=== PATIENT | female | born 1935 | race Two or more races ===

== ENCOUNTER 2016-10-02 10:40 | Outpatient (CLI) | payer MEDICARE, BC | END 2016-10-02 10:41 | disposition home or self-care (01) | DX: Z12.31 Encounter for screening mammogram for malignant neoplasm of breast (principal) ==

== ENCOUNTER 2017-10-11 12:24 | Outpatient (CLI) | payer MEDICARE, BC, OTHER ==
--- NOTE | 2017-10-12 19:56 | Mammography Report ---
DATE OF SERVICE: 10/11/2017 DIGITAL SCREENING MAMMOGRAM: 10/11/2017 CLINICAL INDICATION: An 82-year-old with history of benign biopsies for screening. COMPARISON: 09/2016, 09/2015, 09/2014, 07/2013, 07/2012, 07/2011, 07/2010. TECHNIQUE: Routine CC and MLO projections as well as bilateral laterally exaggerated craniocaudal views were obtained of the breasts. The breasts demonstrate scattered fibroglandular densities bilaterally. A few punctate, typically benign calcifications are present. Post-biopsy changes are stable. No suspicious masses, clustered microcalcifications, or regions of architectural distortion are identified. IMPRESSION: Benign findings. RECOMMENDATIONS: Routine annual screening unless otherwise clinically indicated. BIRADS category 2 benign findings. STANDARD QUALIFYING STATEMENTS 1. This examination was reviewed with the aid of Computed-Aided Detection (CAD). 2. A negative or benign imaging report should not delay biopsy if clinically suspicious findings are present. Consider surgical consultation if warranted. More than 5% of cancers are not identified by imaging. 3. Dense breasts may obscure an underlying neoplasm. TD: 10/12/2017 20:55
== END 2017-10-11 12:25 | disposition home or self-care (01) ==
LOC: DI 12:24
PROVIDERS: ATTEND Obstetrics & Gynecology
DX: Z12.31 Encounter for screening mammogram for malignant neoplasm of breast (principal)
CPT/HCPCS: 77067

== ENCOUNTER 2018-10-14 12:21 | Outpatient (CLI) | payer MEDICARE, BC, OTHER ==
--- NOTE | 2018-10-17 09:31 | Mammography Report ---
Reason: [facility] SCREEN MAMMOGRAM FOR MALIGNANT NEOPLASM OF B Procedure Date: 10/14/2018 Accession Number: [id number] / [id number] Procedure: [facility] - Screening Mammo w/[facility] CPT Code: FULL RESULT: EXAM: Screening Mammo w/[facility] DATE: 10/14/2018 1:25 PM CLINICAL HISTORY: Screening encounter. Personal history of stage II endometrial cancer and early menses. History of right breast benign tumor removal in 1967 and right breast cyst removal in 1968. TECHNIQUE: Bilateral CC and MLO views were obtained. COMPARISON: 10/11/2017 through 10/04/2014. FINDINGS: The breasts demonstrate scattered fibroglandular densities bilaterally. There are stable postsurgical changes in the right breast. A coarse typically benign calcification in the left breast is stable. No suspicious masses, clustered microcalcifications, or regions of architectural distortion are identified. IMPRESSION: Benign findings RECOMMENDATION: Routine annual screening unless otherwise clinically indicated. BIRADS CATEGORY 2: Benign findings STANDARD QUALIFYING STATEMENTS: 1. This examination was not reviewed with the aid of Computer-Aided Detection (CAD). 2. A negative or benign imaging report should not preclude biopsy if clinically suspicious findings are present. 3. Dense breasts may obscure an underlying neoplasm. 4. This examination was reviewed with the aid of 3D breast imaging (tomosynthesis).
== END 2018-10-14 12:22 | disposition home or self-care (01) ==
LOC: DI 12:21
PROVIDERS: ATTEND Obstetrics & Gynecology
DX: Z12.31 Encounter for screening mammogram for malignant neoplasm of breast (principal)
CPT/HCPCS: 77063; 77067

== ENCOUNTER 2019-04-04 08:00 | Outpatient (CLI) | payer MEDICARE, BC, OTHER ==
[2019-04-04 18:51] LABS: BASOPHILS # (AUTO) 0.1 10^3/uL (0.0-0.1); BASOPHILS % (AUTO) 1.2 %; EOSINOPHILS # (AUTO) 0.1 10^3/uL (0.0-0.7); HGB - HEMOGLOBIN 13.9 g/dL (12.0-16.0); LYMPHOCYTES # (AUTO) 1.8 10^3/uL (1.5-3.5); MEAN CORPUSCULAR HGB CONC 33.2 g/dL (32.0-36.0); MEAN CORPUSCULAR VOLUME 96.5 fL (81.0-99.0); MEAN PLATELET VOLUME 13.4 fL (7.9-10.8); MONOCYTES # (AUTO) 0.5 10^3/uL (0.0-1.0); MONOCYTES % (AUTO) 8.7 %; NEUTROPHILS # (AUTO) 2.8 10^3/uL (1.5-6.6); NEUTROPHILS % (AUTO) 53.9 %; PLT - PLATELET COUNT 236 10^3/uL (130-450); RED BLOOD COUNT 4.34 10^6/uL (4.20-5.40); RED CELL DISTRIBUTION WIDTH 12.7 % (12.0-15.0); WHITE BLOOD COUNT 5.2 x10^3/uL (4.8-10.8)
[2019-04-04 19:04] LABS: ALBUMIN 4.5 g/dL (3.2-5.5); ALKALINE PHOSPHATASE 68 IU/L (42-121); ALT ALANINE AMINOTRANSFERASE 23 IU/L (10-60); AST ASPARTATE AMINOTRANSFERASE 23 IU/L (10-42); BILIRUBIN,TOTAL 1.3 mg/dL (0.2-1.0); BUN - BLOOD UREA NITROGEN 20 mg/dL (6-20); CALCIUM 9.9 mg/dL (8.5-10.3); CARBON DIOXIDE - CO2 27 mmol/L (21-32); CHLORIDE 101 mmol/L (101-111); CHOLESTEROL 186 mg/dL; CREATININE 0.7 mg/dL (0.4-1.0); GFR - MDRD 80 (>89); GLUCOSE 113 mg/dL (70-100); HDL CHOLESTEROL 93 mg/dL; LDL CHOLESTEROL,CALCULATED 82 mg/dL; LDL/HDL RATIO 0.9 (<4.4); SODIUM 140 mmol/L (135-145); TOTAL PROTEIN 6.7 g/dL (6.7-8.2); VLDL CHOLESTEROL 11 mg/dL
[2019-04-04 21:21] LABS: PLATELET ESTIMATE, MANUAL NORMAL (130-450,000) (NORMAL); PLATELET MORPHOLOGY 1+ LARGE PLATELETS (NORMAL); RBC MORPHOLOGY (MULTIPLE) NORMAL APPEARANCE (NORMAL)
== END 2019-04-04 23:59 | disposition home or self-care (01) ==
LOC: LAB.WCP 08:00
PROVIDERS: ATTEND Family Medicine
DX: E78.5 Hyperlipidemia, unspecified (principal)
CPT/HCPCS: 36415; 80053; 80061; 83721; 84443; 85025

== ENCOUNTER 2019-07-18 14:49 | Outpatient (CLI) | payer MEDICARE, BC, OTHER ==
[2019-07-18 19:41] LABS: THYROID STIMULATING HORMONE 2.06 uIU/mL (0.34-5.60)
[2019-07-18 19:43] LABS: FREE T4 (FREE THYROXINE) 0.78 ng/dL (0.58-1.64)
== END 2019-07-18 23:59 | disposition home or self-care (01) ==
LOC: LAB.N 14:49
PROVIDERS: ATTEND Family Medicine
DX: E04.1 Nontoxic single thyroid nodule (principal)
CPT/HCPCS: 36415; 84439; 84443; 84481; 86800

== ENCOUNTER 2019-08-03 09:00 | Outpatient (CLI) | payer MEDICARE, BC, OTHER ==
[2019-08-04 11:39] LABS: BILIRUBIN,URINE NEGATIVE (NEGATIVE); CLARITY,URINE CLEAR (CLEAR); GLUCOSE, URINE (UA) NEGATIVE (NEGATIVE); KETONES,URINE (UA) TRACE mg/dL (NEGATIVE); LEUKOCYTE ESTERASE, URINE NEGATIVE (NEGATIVE); NITRITE,URINE NEGATIVE (NEGATIVE); OCCULT BLOOD,URINE TRACE-LYSE (NEGATIVE); PH,URINE 5.5 PH (5.0-7.5); PROTEIN,URINE NEGATIVE (NEGATIVE); UROBILINOGEN,URINE 0.2 (NORMAL) E.U./dL (NORMAL)
[2019-08-04 12:02] LABS: RBC,URINE 0-5 /HPF (0-5); SQUAMOUS EPITHELIAL CELL,UR FEW Squamous (<= Few)
[2019-08-04 12:03] LABS: BACTERIA,URINE Rare /HPF (None Seen)
== END 2019-08-03 23:59 | disposition home or self-care (01) ==
LOC: LAB.R 09:00
PROVIDERS: ATTEND Obstetrics & Gynecology
DX: Z80.52 Family history of malignant neoplasm of bladder (principal)
CPT/HCPCS: 81001

== ENCOUNTER 2019-08-23 07:00 | Outpatient (CLI) | payer MEDICARE, BC, OTHER ==
[2019-08-23 15:55] LABS: BILIRUBIN,URINE NEGATIVE (NEGATIVE); GLUCOSE, URINE (UA) NEGATIVE (NEGATIVE); KETONES,URINE (UA) NEGATIVE (NEGATIVE); LEUKOCYTE ESTERASE, URINE NEGATIVE (NEGATIVE); NITRITE,URINE NEGATIVE (NEGATIVE); OCCULT BLOOD,URINE NEGATIVE (NEGATIVE); PROTEIN,URINE 30 mg/dL (NEGATIVE); UROBILINOGEN,URINE 0.2 (NORMAL) E.U./dL (NORMAL)
[2019-08-23 16:01] LABS: CLARITY,URINE CLEAR (CLEAR)
[2019-08-23 16:13] LABS: BACTERIA,URINE None Seen /HPF (None Seen); RBC,URINE None Seen /HPF (0-5); SQUAMOUS EPITHELIAL CELL,UR RARE Squamous (<= Few)
== END 2019-08-23 23:59 | disposition home or self-care (01) ==
LOC: LAB.R 07:00
PROVIDERS: ATTEND Obstetrics & Gynecology
DX: R31.21 Asymptomatic microscopic hematuria (principal); R30.0 Dysuria
CPT/HCPCS: 81001

== ENCOUNTER 2019-08-23 12:46 | Outpatient (CLI) | payer MEDICARE, BC, OTHER ==
--- NOTE | 2019-08-23 16:55 | Ultrasound Report ---
Reason: THYROID NODULE Procedure Date: 08/23/2019 Accession Number: [id number] / [id number] Procedure: US - Head or Neck Soft Tissue CPT Code: Final Report FULL RESULT: EXAM: THYROID ULTRASOUND EXAM DATE: 08/23/2019 03:01 PM. CLINICAL HISTORY: THYROID NODULE. COMPARISON: 10/18/2015. TECHNIQUE: Real time sonographic imaging of the thyroid was performed by the tab card press operator. Multiple sales representative health insurance static images were saved for review. FINDINGS: THYROID GLAND: Right Lobe: 3.9 x 1.2 x 1.3 cm, volume 3.1 cc. Right Lobe Nodule: Mixed cystic/solid nodule in central position measuring 1.4 x 0.7 x 0.83 cm. The margins are smooth and remains wider than tall. No associated calcifications. Left Lobe: 4.5 x 0.84 x 1.0 cm, volume 1.9 cc. Left Lobe Nodule: Oval hypoechoic solid nodule measuring 0.9 x 0.5 x 0.7 cm. The margins are and is wider than tall. No associated calcifications. Isthmus: 0.16 cm AP. Isthmic Nodules: None. LYMPH NODES: No adenopathy demonstrated in the central or lateral compartment. IMPRESSION: 1. Right lobe nodule - oval, circumscribed, mixed solid /cystic measuring 1.4 cm in maximal dimension. Stable since 2015 2. Left lobe nodule - oval, circumscribed, measuring 0.9 cm in maximal dimension. Recommend follow-up surveillance ultrasound in 12 months to confirm stability. Management recommendations are based on 2015 [place] [employer] Management Guidelines for Adult Patients with Thyroid Nodules and Differentiated Thyroid Cancer. RADIA
== END 2019-08-23 12:47 | disposition home or self-care (01) ==
LOC: DI 12:46
PROVIDERS: ATTEND Family Medicine
DX: E04.2 Nontoxic multinodular goiter (principal); R31.21 Asymptomatic microscopic hematuria; R30.0 Dysuria
CPT/HCPCS: 76536; 81001

== ENCOUNTER 2019-10-03 12:53 | Outpatient (CLI) | payer MEDICARE, BC, OTHER ==
--- NOTE | 2019-10-04 12:04 | Mammography Report ---
Reason: ROUTINE MAMMO Procedure Date: 10/03/2019 Accession Number: [id number] / [id number] Procedure: [facility] - Screening Mammo w/Gilmer CPT Code: Final Report FULL RESULT: EXAM: Screening Mammo w/[facility] DATE: 10/03/2019 1:41 PM CLINICAL HISTORY: The patient is an 84 year-old asymptomatic female. Family history breast cancer. Prior benign right breast biopsy. TECHNIQUE: (B) - Bilateral CC and MLO views were obtained. COMPARISON: 10/14/2018, 10/11/2017, 10/02/2016, 10/08/2015, 10/04/2014, 08/21/2013 08/12/2012 PARENCHYMAL PATTERN: (A) - The breasts demonstrate scattered fibroglandular densities bilaterally. FINDINGS: The pattern of asymmetry is stable given positional variation. Post biopsy changes again noted on the right side. There are no suspicious masses, calcifications, or areas of distortion. IMPRESSION: Benign findings. BI-RADS category 2. RECOMMENDATION: (ANNUAL) - Recommend routine annual screening mammography. BI-RADS CATEGORY: (2) - Benign Findings. STANDARD QUALIFYING STATEMENTS: A negative or benign imaging report should not preclude biopsy if clinically suspicious findings are present. Dense breasts may obscure an underlying neoplasm. This examination was reviewed with the aid of 3D breast imaging (tomosynthesis).
== END 2019-10-03 12:54 | disposition home or self-care (01) ==
LOC: DI 12:53
PROVIDERS: ATTEND Obstetrics & Gynecology
DX: Z12.31 Encounter for screening mammogram for malignant neoplasm of breast (principal); Z80.3 Family history of malignant neoplasm of breast
CPT/HCPCS: 77063; 77067

== ENCOUNTER 2020-10-07 10:04 | Outpatient (CLI) | payer MEDICARE, BC, OTHER ==
[2020-10-07 12:00] LABS: BASOPHILS % (AUTO) 0.7 %; EOSINOPHILS # (AUTO) 0.1 10^3/uL (0.0-0.7); EOSINOPHILS % (AUTO) 0.8 %; HGB - HEMOGLOBIN 13.7 g/dL (12.0-16.0); LYMPHOCYTES # (AUTO) 1.8 10^3/uL (1.5-3.5); MEAN CORPUSCULAR HEMOGLOBIN 30.9 pg (27.0-31.0); MEAN CORPUSCULAR HGB CONC 32.8 g/dL (32.0-36.0); MEAN CORPUSCULAR VOLUME 94.4 fL (81.0-99.0); MEAN PLATELET VOLUME 11.9 fL (7.9-10.8); MONOCYTES # (AUTO) 0.4 10^3/uL (0.0-1.0); MONOCYTES % (AUTO) 6.9 %; NEUTROPHILS # (AUTO) 3.6 10^3/uL (1.5-6.6); NEUTROPHILS % (AUTO) 60.4 %; PLT - PLATELET COUNT 191 10^3/uL (130-450); RED BLOOD COUNT 4.43 10^6/uL (4.20-5.40); RED CELL DISTRIBUTION WIDTH 12.5 % (12.0-15.0); WHITE BLOOD COUNT 5.9 x10^3/uL (4.8-10.8)
[2020-10-07 13:14] LABS: ALBUMIN 4.2 g/dL (3.2-5.5); ALKALINE PHOSPHATASE 71 IU/L (42-121); ALT ALANINE AMINOTRANSFERASE 19 IU/L (10-60); AST ASPARTATE AMINOTRANSFERASE 19 IU/L (10-42); BILIRUBIN,TOTAL 0.9 mg/dL (0.2-1.0); BUN - BLOOD UREA NITROGEN 17 mg/dL (6-20); CALCIUM 9.5 mg/dL (8.5-10.3); CARBON DIOXIDE - CO2 29 mmol/L (21-32); CHLORIDE 108 mmol/L (101-111); CHOL/HDL RATIO 2.1 (<4.4); CHOLESTEROL 166 mg/dL; CREATININE 0.6 mg/dL (0.4-1.0); GLUCOSE 107 mg/dL (70-100); HDL CHOLESTEROL 80 mg/dL; LDL CHOLESTEROL,CALCULATED 76 mg/dL; SODIUM 143 mmol/L (135-145); TOTAL PROTEIN 6.3 g/dL (6.7-8.2); VLDL CHOLESTEROL 10 mg/dL
== END 2020-10-07 23:59 | disposition home or self-care (01) ==
LOC: LAB.WCP 10:04
PROVIDERS: ATTEND Nurse Practitioner Family
DX: E78.5 Hyperlipidemia, unspecified (principal); E04.1 Nontoxic single thyroid nodule; K21.9 Gastro-esophageal reflux disease without esophagitis
CPT/HCPCS: 36415; 80053; 80061; 83721; 84443; 85025

== ENCOUNTER 2021-01-15 09:40 | Emergency (ER) | payer MEDICARE, BC ==
--- OUTSIDE RECORDS SUMMARY | 2021-01-15 10:17 | EXTERNAL MEDICAL SUMMARY RPT | Continuity of Care Document ---
:1935 Demographics Phone Unavailable Preferred Language Unknown Marital Status Unknown Mu-Ism Affiliation Unknown Race Unknown Ethnic Group Unknown Author Organization [facility] Address [address] [phone] Phone Social History date description facility [id number]
[2021-01-15] MEDS ORDERED: AMOX/CLAV 875 MG/125 MG TABLET PO STA (10:37)
--- NOTE | 2021-01-15 10:40 | ED Physician Documentation ---
PD HPI SKIN - Stated complaint Stated Complaint: LT HAND PAIN - Chief complaint Chief Complaint: Wound - History obtained from History obtained from: Patient - Additional information Additional information: Patient comes emergency department with chief complaint of cat scratch to hand. Patient states she was feeding a stray cat this morning when it suddenly scratched her. Patient denies any bites. She states the wound bled quite a bit and finally stopped but now she has a big bruise over her left first metacarpal joint where she was scratched. Patient is concerned because a number of years ago, she had a cat bite and the immediately gave her antibiotics via IV, even though she did not have signs of infection. Patient has come right him over this concern. She was not injured in any other way. She states the wound does not hurt and that she has been able to fully move her thumb. No other complaints at this time Review of Systems Ten Systems: 10 systems reviewed and negative Constitutional: reports: Reviewed and negative Eyes: reports: Reviewed and negative Ears: reports: Reviewed and negative Nose: reports: Reviewed and negative Throat: reports: Reviewed and negative Cardiac: reports: Reviewed and negative Respiratory: reports: Reviewed and negative GI: reports: Reviewed and negative : reports: Reviewed and negative Skin: reports: Other (Puncture wound) Musculoskeletal: reports: Reviewed and negative Neurologic: reports: Reviewed and negative Psychiatric: reports: Reviewed and negative Endocrine: reports: Reviewed and negative Immunocompromised: reports: Reviewed and negative PD PAST MEDICAL HISTORY - Past Medical History Past Medical History: Yes Cardiovascular: None Respiratory: None Endocrine/Autoimmune: None GI: Other : Other HEENT: Chronic sinusitis Psych: None Musculoskeletal: Osteoarthritis Derm: None - Past Surgical History Past Surgical History: Yes General: Cholecystectomy, Appendectomy, Colonoscopy, Other Ortho: 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, Oophrectomy HEENT: Cataracts - Present Medications Home Medications: Ambulatory Orders Medication Instructions Recorded Confirmed Hydrochlorothiazide 25 mg PO DAILY 03/11/13 05/13/15 Multivitamin,Ther and Minerals 1 tab PO DAILY 03/11/13 05/13/15 [Vitamin and Minerals] Olopatadine HCl [Patanol] 1 drop EACHEYE BID 03/11/13 05/13/15 Amoxicillin/Potassium Clav 1 each PO Q12H #14 tablet 05/13/15 [Augmentin 875-125 Tablet] Fluticasone Propionate [Flonase 1 inh INH DAILY 05/13/15 05/13/15 Allergy Relief] Amox/Clav 875/125 [Augmentin] 1 each PO Q12H #10 tablet 01/15/21 - Allergies Allergies/Adverse Reactions: Allergies Allergy/AdvReac Type Severity Reaction Status Date / Time codeine [Codeine] Allergy Intermediate Nausea Verified 01/15/21 09:55 - Social History Does the pt smoke?: No Smoking Status: Never smoker Does the pt drink ETOH?: No Does the pt have substance abuse?: No - Immunizations Immunizations are current?: Yes PD ED PE NORMAL - Vitals Vital signs reviewed: Yes - General General: Alert and oriented X 3, No acute distress - HEENT HEENT: Atraumatic, PERRL, EOMI, Moist mucous membranes - Neck Neck: Supple, no meningeal sign - Cardiac Cardiac: Strong equal pulses - Respiratory Respiratory: No respiratory distress - Derm Derm: Warm and dry, Other (Puncture wound over dorsal aspect of left first Carpometacarpal joint with surrounding contusion. No fluctuance or induration. No erythema. No streaking. No edema.) - Extremities Extremities: No deformity, Other (Full range of motion of left thumb at both the carpometacarpal and metacarpal phalangeal joints, as well as the IP joint.) - Neuro Neuro: Alert and oriented X 3 - Psych Psych: Normal mood, Normal affect Results - Vitals Vitals: Vital Signs - 24 hr 01/15/21 09:52 Temperature 36.4 C L Heart Rate 73 Respiratory 16 Rate Blood Pressure 165/85 H O2 Saturation 100 Oxygen O2 Source Room air PD MEDICAL DECISION MAKING - ED course Complexity details: considered differential, d/w patient ED course: I discussed with the patient that there is no indication for IV antibiotics at this time, and that right now, the wound does not appear infected. However, given the aggressiveness of feline oral berry, and the propensity for infection, as well as the fact that the wound is over a joint on the hand, I will give her a prophylactic course of oral antibiotics. Patient is given a dose of Augmentin here in the emergency department, as well as a prescription for Augmentin. We have discussed the usual indications for return. Departure - Departure Disposition: 01 Home, Self Care Clinical Impression: Cat scratch, Puncture wound Condition: Stable Instructions: Bites Scratches Animal Prescriptions: Amox/Clav 875/125 [Augmentin] 1 each PO Q12H #10 tablet Comments: There is no sign of infection at this time, and given that you have a cat scratch/puncture wound, not a cat bite, there is no indication for IV antibiotics at this time. Given that the wound is on your hand, and that cat scratches may occasionally convey cat oral berry into the tissues under the skin, we will put you on a short course of preventative antibiotics. Please follow-up with your primary care physician as needed.
[2021-01-15 10:49] VITALS: BP 143/90
== END 2021-01-15 10:50 | disposition home or self-care (01) ==
LOC: ED 09:40
DX: S61.432A Puncture wound without foreign body of left hand, initial encounter (principal); S60.222A Contusion of left hand, initial encounter; W55.03XA Scratched by cat, initial encounter; Y93.89 Activity, other specified
CPT/HCPCS: 99282; 99283; A9270

== ENCOUNTER 2021-02-06 14:28 | Outpatient (CLI) | payer MEDICARE, BC, OTHER ==
--- NOTE | 2021-02-07 10:49 | Mammography Report ---
BILATERAL DIGITAL SCREENING MAMMOGRAM 3D/2D: 02/06/2021 CLINICAL: Routine screening. Comparison is made to exams dated: 10/03/2019 mammogram, 10/14/2018 mammogram, 10/11/2017 mammogram, 10/02 mammogram, and 12/09/2015 mammogram - [facility]. There are scattered fibrogl andular elements in both breasts. No significant masses, calcifications, or other findings are seen in either breast. There has been no significant interval change. IMPRESSION: NEGATIVE There is no mammographic evidence of malignancy. A 1 year screening mammogram is recommended. This exam was interpreted at Station ID: [id number]. NOTE: For mammograms, a report in lay terms will be sent to the patient. Approximately 15% of breast malignancies will not be visualized mammographically. In the management of a palpable breast mass, a negative mammogram must not discourage biopsy of a clinically suspicious lesion. Electronically Signed By: Robert Castillo M.D. ddp/penrad:02/06/2021 15:39:26 ACR BI-RADS Category 1: Negative 3341F PARENCHYMAL PATTERN: (A) - The breast(s) demonstrate(s) scattered fibroglandular densities. BI-RADS CATEGORY: (1) - 1 RECOMMENDATION: (ANNUAL) - Recommend routine annual screening mammography. [id number] 1 year screening LATERALITY: (B)
== END 2021-02-06 14:29 | disposition home or self-care (01) ==
LOC: DI 14:28
DX: Z12.31 Encounter for screening mammogram for malignant neoplasm of breast (principal)

== ENCOUNTER 2021-07-03 12:37 | Outpatient (CLI) | payer MEDICARE, BC ==
--- NOTE | 2021-07-03 16:05 | XRAY Report ---
PROCEDURE: Elbow 3 View RT INDICATIONS: RIGHT ELOBOW PAIN TECHNIQUE: 3 views of the elbow were acquired. COMPARISON: None FINDINGS: Bones: Osteoarthritic changes are noted in the elbow joints. No acute fracture or dislocation. No donya picious bony lesions. Soft tissues: No elbow joint effusion. Small calcifications are noted along medial and lateral aspec t of elbow joints adjacent to humeral condyles and radial head suggestive of dystrophic calcification s from old injury. IMPRESSION: Elbow joint osteoarthritis. No acute fracture or dislocation. No significant joint effusion. Amorphou s calcifications in medial and lateral aspect of elbow joint as above, likely represent dystrophic ca lcifications from old injuries. Reviewed by: Malik Nieto MD on 07/03/2021 4:04 PM PDT Approved by: Malik Nieto MD on 07/03/2021 4:04 PM PDT Station ID: [id number]
== END 2021-07-03 12:38 | disposition home or self-care (01) ==
LOC: DI.N 12:37
PROVIDERS: ATTEND Physician Assistant
DX: M19.021 Primary osteoarthritis, right elbow (principal); R93.6 Abnormal findings on diagnostic imaging of limbs

== ENCOUNTER 2021-11-21 08:00 | Outpatient (CLI) | payer MEDICARE, BC ==
[2021-11-21 18:48] LABS: BILIRUBIN,URINE NEGATIVE (NEGATIVE); GLUCOSE, URINE (UA) NEGATIVE (NEGATIVE); KETONES,URINE (UA) TRACE mg/dL (NEGATIVE); LEUKOCYTE ESTERASE, URINE SMALL (NEGATIVE); NITRITE,URINE NEGATIVE (NEGATIVE); OCCULT BLOOD,URINE TRACE-INTA (NEGATIVE); PH,URINE 5.5 PH (5.0-7.5); PROTEIN,URINE 30 mg/dL (NEGATIVE); UROBILINOGEN,URINE 0.2 (NORMAL) E.U./dL (NORMAL)
[2021-11-21 18:52] LABS: CLARITY,URINE SL. CLOUDY (CLEAR)
[2021-11-21 20:07] LABS: BACTERIA,URINE Few /HPF (None Seen); CRYSTALS,URINE >50 Calcium Oxalate /LPF; RBC,URINE 0-5 /HPF (0-5); SQUAMOUS EPITHELIAL CELL,UR FEW Squamous (<= Few)
== END 2021-11-21 23:59 | disposition home or self-care (01) ==
LOC: LAB.WCP 08:00
PROVIDERS: ATTEND Physician Assistant
DX: Z00.00 Encounter for general adult medical examination without abnormal findings (principal); Z80.52 Family history of malignant neoplasm of bladder
CPT/HCPCS: 81001

== ENCOUNTER 2021-11-28 11:06 | Outpatient (CLI) | payer MEDICARE, BC ==
[2021-11-28 11:41] LABS: BASOPHILS # (AUTO) 0.1 10^3/uL (0.0-0.1); BASOPHILS % (AUTO) 1.1 %; EOSINOPHILS # (AUTO) 0.1 10^3/uL (0.0-0.7); HCT - HEMATOCRIT 44.1 % (37.0-47.0); HGB - HEMOGLOBIN 14.5 g/dL (12.0-16.0); LYMPHOCYTES # (AUTO) 1.5 10^3/uL (1.5-3.5); LYMPHOCYTES % (AUTO) 24.8 %; MEAN CORPUSCULAR HEMOGLOBIN 30.4 pg (27.0-31.0); MEAN CORPUSCULAR HGB CONC 32.9 g/dL (32.0-36.0); MEAN CORPUSCULAR VOLUME 92.5 fL (81.0-99.0); MEAN PLATELET VOLUME 10.1 fL (7.9-10.8); MONOCYTES # (AUTO) 0.4 10^3/uL (0.0-1.0); MONOCYTES % (AUTO) 6.6 %; NEUTROPHILS # (AUTO) 4.1 10^3/uL (1.5-6.6); NEUTROPHILS % (AUTO) 66.2 %; PLT - PLATELET COUNT 235 10^3/uL (130-450); RED BLOOD COUNT 4.77 10^6/uL (4.20-5.40); RED CELL DISTRIBUTION WIDTH 12.2 % (12.0-15.0); WHITE BLOOD COUNT 6.2 x10^3/uL (4.8-10.8)
[2021-11-28 11:55] LABS: BILIRUBIN,URINE NEGATIVE (NEGATIVE); GLUCOSE, URINE (UA) NEGATIVE (NEGATIVE); KETONES,URINE (UA) 15 mg/dL (NEGATIVE); LEUKOCYTE ESTERASE, URINE NEGATIVE (NEGATIVE); NITRITE,URINE NEGATIVE (NEGATIVE); OCCULT BLOOD,URINE TRACE-INTA (NEGATIVE); PH,URINE 5.5 PH (5.0-7.5); PROTEIN,URINE 30 mg/dL (NEGATIVE); UROBILINOGEN,URINE 0.2 (NORMAL) E.U./dL (NORMAL)
[2021-11-28 11:59] LABS: ALBUMIN 4.6 g/dL (3.2-5.5); ALBUMIN/GLOBULIN RATIO 1.9 (1.0-2.2); ALKALINE PHOSPHATASE 72 IU/L (42-121); ALT ALANINE AMINOTRANSFERASE 19 IU/L (10-60); AST ASPARTATE AMINOTRANSFERASE 21 IU/L (10-42); BILIRUBIN,TOTAL 1.1 mg/dL (0.2-1.0); BUN - BLOOD UREA NITROGEN 21 mg/dL (6-20); CALCIUM 9.6 mg/dL (8.5-10.3); CARBON DIOXIDE - CO2 27 mmol/L (21-32); CHLORIDE 102 mmol/L (101-111); CHOL/HDL RATIO 2.1 (<4.4); CHOLESTEROL 201 mg/dL; CREATININE 0.6 mg/dL (0.4-1.0); GFR - MDRD 95 (>89); GLUCOSE 114 mg/dL (70-100); HDL CHOLESTEROL 94 mg/dL; POTASSIUM 3.8 mmol/L (3.5-5.0); SODIUM 138 mmol/L (135-145); TRIGLYCERIDES 39 mg/dL
[2021-11-28 12:03] LABS: ESTIMATED AVERAGE GLUCOSE 111 mg/dL (70-100); HEMOGLOBIN A1c% 5.5 % (4.27-6.07)
[2021-11-28 12:07] LABS: CLARITY,URINE CLEAR (CLEAR); RBC,URINE None Seen /HPF (0-5); WBC,URINE 0-3 /HPF (0-5)
[2021-11-28 12:08] LABS: BACTERIA,URINE Rare /HPF (None Seen); SQUAMOUS EPITHELIAL CELL,UR FEW Squamous (<= Few)
[2021-11-28 12:12] LABS: THYROID STIMULATING HORMONE 1.69 uIU/mL (0.34-5.60)
== END 2021-11-28 11:07 | disposition home or self-care (01) ==
LOC: LAB 11:06
PROVIDERS: ATTEND Physician Assistant
DX: E55.9 Vitamin D deficiency, unspecified (principal); R31.21 Asymptomatic microscopic hematuria; E78.5 Hyperlipidemia, unspecified; Z13.9 Encounter for screening, unspecified; Z80.52 Family history of malignant neoplasm of bladder
CPT/HCPCS: 36415; 80053; 80061; 81001; 82306; 83036; 83721; 84443; 85025; 87086

== ENCOUNTER 2022-04-21 12:56 | Outpatient (CLI) | payer MEDICARE, BC ==
--- NOTE | 2022-04-22 10:38 | Mammography Report ---
BILATERAL DIGITAL SCREENING MAMMOGRAM 3D/2D: 04/21/2022 CLINICAL: Routine screening. Comparison is made to exams dated: 02/06/2021 mammogram, 10/03/2019 mammogram, 10/14/2018 mammogram, 09/27 mammogram, 10/02/2016 mammogram, and 12/09/2015 mammogram - [facility]. There are scattered fibroglandular elements in both breasts. There is a benign calcification in the left breast. No significant masses, calcifications, or other findings are seen in either breast. There has been no significant interval change. IMPRESSION: BENIGN There is no mammographic evidence of malignancy. A 1 year screening mammogram is recommended. Based on the Tyrer Cuzick model (a risk assessment model) the patients lifetime risk is 0.1% and her 10 year risk is 0.0%. According to the ACR, ACS, and NCCN guidelines, an annual breast MRI exam adrianna g with mammogram is recommended if the patients lifetime risk is 20% or greater. This exam was interpreted at Station ID: [id number]. NOTE: For mammograms, a report in lay terms will be sent to the patient. Approximately 15% of breast malignancies will not be visualized mammographically. In the management of a palpable breast mass, a negative mammogram must not discourage biopsy of a clinically suspicious lesion. Electronically Signed By: Rachid Thompson acr/penrad:04/21/2022 14:04:21 ACR BI-RADS Category 2: Benign Finding(s) 3342F PARENCHYMAL PATTERN: (A) - The breast(s) demonstrate(s) scattered fibroglandular densities. BI-RADS CATEGORY: (2) - 2 RECOMMENDATION: (ANNUAL) - Recommend routine annual screening mammography. [id number] 1 year screening LATERALITY: (B)
== END 2022-04-21 12:57 | disposition home or self-care (01) ==
LOC: DI.N 12:56
DX: Z12.31 Encounter for screening mammogram for malignant neoplasm of breast (principal)

== ENCOUNTER 2022-12-11 09:48 | Outpatient (CLI) | payer MEDICARE, BC ==
--- NOTE | 2022-12-11 10:24 | XRAY Report ---
PROCEDURE: Chest 2 View X-Ray INDICATIONS: CHRONIC COUGH,WEIGHT LOSS TECHNIQUE: 2 views of the chest were acquired. COMPARISON: 09/08/2013 FINDINGS: Surgical changes and devices: Cholecystectomy clips. Lungs and pleura: No pleural effusions or pneumothorax. Lungs are clear. Mediastinum: Mediastinal contours are normal. Heart size is normal. Bones and chest wall: No suspicious bony abnormalities. Soft tissues appear unremarkable. IMPRESSION: 1. No evidence acute pulmonary process. 2. Old thoracic compression. Reviewed by: Ronnie Haywood MD on 12/11/2022 10:23 AM PDT Approved by: Ronnie Haywood MD on 12/11/2022 10:23 AM PDT Station ID: [id number]
== END 2022-12-11 09:49 | disposition home or self-care (01) ==
LOC: DI 09:48
PROVIDERS: ATTEND Physician Assistant
DX: R05.3 Chronic cough (principal); R63.4 Abnormal weight loss

== ENCOUNTER 2022-12-25 10:31 | Outpatient (CLI) | payer MEDICARE, BC ==
[2022-12-25 10:50] LABS: BASOPHILS % (AUTO) 0.8 %; EOSINOPHILS % (AUTO) 0.6 %; HCT - HEMATOCRIT 45.2 % (37.0-47.0); HGB - HEMOGLOBIN 14.6 g/dL (12.0-16.0); LYMPHOCYTES # (AUTO) 1.6 10^3/uL (1.5-3.5); LYMPHOCYTES % (AUTO) 30.4 %; MEAN CORPUSCULAR HEMOGLOBIN 30.2 pg (27.0-31.0); MEAN CORPUSCULAR HGB CONC 32.3 g/dL (32.0-36.0); MEAN CORPUSCULAR VOLUME 93.6 fL (81.0-99.0); MEAN PLATELET VOLUME 10.4 fL (7.9-10.8); MONOCYTES # (AUTO) 0.4 10^3/uL (0.0-1.0); MONOCYTES % (AUTO) 7.2 %; NEUTROPHILS # (AUTO) 3.2 10^3/uL (1.5-6.6); NEUTROPHILS % (AUTO) 60.8 %; PLT - PLATELET COUNT 203 10^3/uL (130-450); RED BLOOD COUNT 4.83 10^6/uL (4.20-5.40); RED CELL DISTRIBUTION WIDTH 12.3 % (12.0-15.0); WHITE BLOOD COUNT 5.3 x10^3/uL (4.8-10.8)
[2022-12-25 11:07] LABS: ALBUMIN 4.4 g/dL (3.2-5.5); ALBUMIN/GLOBULIN RATIO 1.8 (1.0-2.2); ALKALINE PHOSPHATASE 75 IU/L (42-121); ALT ALANINE AMINOTRANSFERASE 22 IU/L (10-60); AST ASPARTATE AMINOTRANSFERASE 21 IU/L (10-42); BILIRUBIN,TOTAL 1.2 mg/dL (0.2-1.0); BUN - BLOOD UREA NITROGEN 20 mg/dL (6-20); CALCIUM 9.8 mg/dL (8.5-10.3); CARBON DIOXIDE - CO2 29 mmol/L (21-32); CHLORIDE 106 mmol/L (101-111); CHOLESTEROL 190 mg/dL; CREATININE 0.7 mg/dL (0.4-1.0); GFR - MDRD 80 (>89); GLUCOSE 122 mg/dL (70-100); HDL CHOLESTEROL 97 mg/dL; LDL CHOLESTEROL,CALCULATED 81 mg/dL; LDL/HDL RATIO 0.8 (<4.4); POTASSIUM 4.2 mmol/L (3.5-5.0); SODIUM 143 mmol/L (135-145); TOTAL PROTEIN 6.8 g/dL (6.7-8.2); TRIGLYCERIDES 61 mg/dL; VLDL CHOLESTEROL 12 mg/dL
[2022-12-25 11:19] LABS: THYROID STIMULATING HORMONE 2.16 uIU/mL (0.34-5.60)
== END 2022-12-25 10:32 | disposition home or self-care (01) ==
LOC: LAB 10:31
PROVIDERS: ATTEND Physician Assistant
DX: E78.5 Hyperlipidemia, unspecified (principal); R63.4 Abnormal weight loss; E04.1 Nontoxic single thyroid nodule
CPT/HCPCS: 36415; 80053; 80061; 83721; 84443; 85025; 85651

== ENCOUNTER 2024-01-13 09:36 | Outpatient (CLI) | payer MEDICARE, BC ==
[2024-01-13 09:50] LABS: BASOPHILS # (AUTO) 0.1 10^3/uL (0.0-0.1); BASOPHILS % (AUTO) 1.2 %; EOSINOPHILS % (AUTO) 0.6 %; HCT - HEMATOCRIT 41.7 % (37.0-47.0); HGB - HEMOGLOBIN 13.4 g/dL (12.0-16.0); LYMPHOCYTES # (AUTO) 1.6 10^3/uL (1.5-3.5); LYMPHOCYTES % (AUTO) 31.5 %; MEAN CORPUSCULAR HGB CONC 32.1 g/dL (32.0-36.0); MEAN CORPUSCULAR VOLUME 93.5 fL (81.0-99.0); MEAN PLATELET VOLUME 10.5 fL (7.9-10.8); MONOCYTES # (AUTO) 0.5 10^3/uL (0.0-1.0); MONOCYTES % (AUTO) 9.3 %; NEUTROPHILS # (AUTO) 2.9 10^3/uL (1.5-6.6); NEUTROPHILS % (AUTO) 57.2 %; PLT - PLATELET COUNT 187 10^3/uL (130-450); RED BLOOD COUNT 4.46 10^6/uL (4.20-5.40); RED CELL DISTRIBUTION WIDTH 12.5 % (12.0-15.0); WHITE BLOOD COUNT 5.1 x10^3/uL (4.8-10.8)
[2024-01-13 10:04] LABS: ALBUMIN 4.2 g/dL (3.2-5.5); ALBUMIN/GLOBULIN RATIO 2.5 (1.0-2.2); ALKALINE PHOSPHATASE 68 IU/L (42-121); ALT ALANINE AMINOTRANSFERASE 14 IU/L (10-60); AST ASPARTATE AMINOTRANSFERASE 15 IU/L (10-42); BILIRUBIN,TOTAL 1.2 mg/dL (0.2-1.0); BUN - BLOOD UREA NITROGEN 17 mg/dL (6-20); CALCIUM 9.7 mg/dL (8.5-10.3); CARBON DIOXIDE - CO2 30 mmol/L (21-32); CHLORIDE 106 mmol/L (101-111); CHOL/HDL RATIO 1.7 (<4.4); CHOLESTEROL 159 mg/dL; CREATININE 0.7 mg/dL (0.6-1.3); GFR - MDRD 79 (>89); GLUCOSE 111 mg/dL (74-104); HDL CHOLESTEROL 94 mg/dL; LDL CHOLESTEROL,CALCULATED 51 mg/dL; LDL/HDL RATIO 0.5 (<4.4); POTASSIUM 3.8 mmol/L (3.5-4.5); SODIUM 140 mmol/L (135-145); TOTAL PROTEIN 5.9 g/dL (6.4-8.9); TRIGLYCERIDES 68 mg/dL (48-352); VLDL CHOLESTEROL 14 mg/dL
[2024-01-13 10:22] LABS: ESTIMATED AVERAGE GLUCOSE 111 mg/dL (70-100); HEMOGLOBIN A1c% 5.5 % (4.27-6.07)
== END 2024-01-13 09:37 | disposition home or self-care (01) ==
LOC: LAB 09:36
PROVIDERS: ATTEND Physician Assistant
DX: R63.4 Abnormal weight loss (principal); R73.01 Impaired fasting glucose; E78.49 Other hyperlipidemia
CPT/HCPCS: 36415; 80053; 80061; 83036; 83721; 84443; 85025